=== PATIENT | female | born 1990 | race Caucasian/White ===

== ENCOUNTER 2016-08-31 07:06 | Emergency (ER) | payer MEDICAID, OTHER ==
--- NOTE | 2016-08-31 07:12 | ED.REPORT ---
HPI-NVD Date of Service Aug 31, 2016 ED Provider: Alvin Mariscal MD A 25 year old female with a history of asthma presents to the ED complaining of abdominal pain onset last night at approximately midnight that woke the patient up from sleep. Abdominal pain was accompanied by fever, chills, and sore throat , and was soon followed by vomiting. She also has had non-bloody diarrhea through the night. She has had a mild cold for the last few days, characterized by sore throat. She denies that there have been any close family members or friends who are sick right now. Nursing Notes Stated Complaint: VOMITING/DIARRHEA Nursing Notes Reviewed: Yes Allergies: Coded Allergies: No Known Allergies (Verified , 08/31/16) General Time Seen by MD: 07:11 Chief Complaint Abd pain, constant Hx Obtained From: Patient Arrived By: Walk-in Onset Occurred: Yesterday (midnight) Symptom Duration: Since onset Severity: Current: Moderate Severity: Maximum: Moderate Recent Healthcare: No recent doctor visit Similar Sx Previous: No Past Medical History Past Medical History Dyspnea UTI when small child. Denies any other pertinent medical Hx. Reports: Asthma (treated every day) Reports: Depression Past Surgical History none reported. Reports: Appendectomy (at age 13) Smoking History Never Smoker Social History Alcohol Use: 1-3 per day (1 per day) Ambulatory Status Independent Review of Systems Constitutional: Reports: Chills, Fever Ears / Nose / Throat: Reports: Sore throat GI: Reports: Abdominal pain, Nausea, Vomiting Complete sys rev & neg: except as marked. Respiratory: Denies: Non-productive cough Physical Exam Initial Vital Signs Vital Signs (First) Date Time Temp Pulse Resp B/P Pulse Ox O2 Delivery O2 Flow Rate FiO2 08/31/16 07:13 36.3 96 18 118/73 100 Room Air Initial VS: Reviewed General/Constitutional: Awake, Alert Abdomen: No guarding Tenderness/Guarding/Rebound: Positive: Tender epigastric (Mid epigastric tenderness that is mild without guarding) ENT: Atraumatic, Mucous membranes moist Respiratory / Chest: Atraumatic, Breath sounds NL, Breath sounds = bilat, No respiratory distress, No rales, No rhonchi, No wheezing Cardiovascular: Heart rate NL, Regular rhythm, Heart sounds NL, No gallop, No murmurs, No rubs Skin: Atraumatic, Color NL, Warm, Dry Neurologic: Oriented X3, Speech NL Head / Eyes: Atraumatic, Normocephalic, PERRL, EOMI Upper Extremity / MS: No swelling, No edema Lower Extremity / Pelvis / MS: No swelling, No edema Interpretation & Diagnostics Lab Results Interpretation Result Diagram: 08/31/16 0750 08/31/16 0812 Test 08/31/16 07:50 08/31/16 08:12 08/31/16 09:00 White Blood Count 7.5th/mm3 (3.8-10.1) Red Blood Count 4.73mil/mm3 (3.90-5.20) Hemoglobin 13.4g/dL (12.0-15.6) Hematocrit 40.0% (35.0-46.0) Mean Corpuscular Volume 84.6fL (81-100) Mean Corpuscular Hemoglobin 28.3pg (27.0-35.0) Mean Corpuscular Hemoglobin Concent 33.5% (32.0-37.0) Red Cell Distribution Width 13.0% (12.3-15.4) Platelet Count 168bil/L (150-400) Neutrophils (%) (Auto) 84.8% (40-74) Lymphocytes (%) (Auto) 10.5% (14-46) Monocytes (%) (Auto) 4.4% (4-12) Eosinophils (%) (Auto) 0.1% (0-5) Basophils (%) (Auto) 0.1% (0-3) Sodium Level 140mEq/L (134-144) Potassium Level 3.9mEq/L (3.5-5.2) Chloride Level 106mEq/L (97-108) Carbon Dioxide Level 22mmol/L (18-29) Blood Urea Nitrogen 11mg/dL (6-20) Creatinine 0.46mg/dL (0.57-1.00) Estimat Glomerular Filtration Rate 233mL/min (>59) Glucose Level 108mg/dL (60-99) Calcium Level 8.6mg/dL (8.5-10.1) Magnesium Level 1.9mg/dL (1.6-2.6) Total Bilirubin 0.5mg/dL (0.0-1.2) Aspartate Amino Transf (AST/SGOT) 12U/L (0-50) Alanine Aminotransferase (ALT/SGPT) 11U/L (0-32) Alkaline Phosphatase 40U/L (25-150) Total Protein 6.1g/dL (6.4-8.4) Albumin 3.9g/dL (3.4-5.0) Lipase 23U/L (13-60) Hold Bagley Top Tube Received (Received) Re-Eval/Medical Decision Source of Hx: Old records Re-Evaluation/Progress : Time of Eval: 09:35 Patient Status: Condition improved, Moderate relief Re-Evaluation/Progress Note: Rechecked patient who has been sleeping. She reports that she is scheduled to travel tomorrow. Explained diagnosis and plan for discharge. Patient understands and agrees with the plan. Counseled Regarding: Diagnosis, Lab results, Need for follow-up, When/why to return to ED Discharge & Departure Impression: Primary Impression: Gastroenteritis Disposition: Home Patient Instructions: Gastroenteritis (ED) Additional Instructions: Use Imodium 1 tablet with every diarrheal stool up to 8 per day. Ondansetron as needed for nausea. Keep yourself well hydrated with clear liquids today and advance diet as tolerated. Follow-up right away for excessive dehydration or bloody diarrhea. Referrals: ARSENIO (PCP) [facility] Attestation Portions of this note were transcribed by Donald Haider. I, Dr. Mariscal personally performed the history, physical exam and medical decision-making; I reviewed and confirmed the accuracy of the information in the transcribed note. Signed by: Noy Cifuentes, 08/31/2016, 0938. copies to: Alvin Bernardo MD Aug 31, 2016 07:12 Donald Haider Aug 31, 2016 07:18
[2016-08-31 07:13] VITALS: BP 118/73; PULSE 96; RESP 18; O2SAT 100
[2016-08-31] MEDS ORDERED: 0.9% Sodium Chloride 1,000 ML IV ONE (07:31)
[2016-08-31] MEDS ORDERED: Acetaminophen IV 1,000 MG in IV Premix 1 EACH IV ONE (07:35)
[2016-08-31] MEDS ORDERED: Ondansetron 2 mg/mL 2 mL Inj IVPUSH PRN (07:35)
[2016-08-31] MEDS ORDERED: Pantoprazole 4 mg/mL 10 mL Inj IVPUSH ONE (07:35)
[2016-08-31 07:59] LABS: BASOPHILS % (AUTO) 0.1 % (0-3); EOSINOPHILS % (AUTO) 0.1 % (0-5); MONOCYTES % (AUTO) 4.4 % (4-12); Mean Corpuscular Hemoglobin 28.3 pg (27.0-35.0); Mean Corpuscular Volume 84.6 fL (81-100); NEUTROPHILS % (AUTO) 84.8 % (40-74); Platelet Count 168 bil/L (150-400)
[2016-08-31 08:43] LABS: Magnesium 1.9 mg/dL (1.6-2.6)
[2016-08-31] MEDS ORDERED: ONDA4TAB9 PO (09:54)
[2016-08-31 10:00] VITALS: BP 99/47; PULSE 85; RESP 18; O2SAT 100
== END 2016-08-31 09:54 | disposition home or self-care (01) ==
LOC: SED 07:06
DX: K52.9 Noninfective gastroenteritis and colitis, unspecified (principal); J45.909 Unspecified asthma, uncomplicated
CPT/HCPCS: 36415; 80053; 81025; 83690; 83735; 85025; 96361; 96374; 96375; 99285; J0131; J2405; J7030